=== PATIENT | female | born 1965 | race African-American/Black ===

== ENCOUNTER 2024-10-30 17:57 | Emergency (ER) | payer OTHER ==
[~2024-10-30] VITALS: Ht 175.3 cm; Wt 88.0 kg
[2024-10-30 18:07] VITALS: O2SAT 98
[2024-10-30] MEDS: KETOROLAC 30MG/ML VIAL IM ONE (19:09)
[2024-10-30] MEDS: METHOCARBAMOL 500MG TABLET PO ONE (19:09)
[2024-10-30] MEDS: LIDOCAINE 5% PATCH TOP SCH (19:09)
[2024-10-30] MEDS ORDERED: IBUP-2029 MT (20:33)
[2024-10-30] MEDS ORDERED: METH-653 MT (20:33)
[2024-10-30] MEDS ORDERED: LIDO700A30 TP (20:33)
[2024-10-30 21:20] VITALS: BP 148/91; PULSE 75; RESP 8; TEMP 36.7; O2SAT 100
== END 2024-10-30 21:24 | disposition home or self-care (01) ==
LOC: ER 17:57
DX: S33.5XXA Sprain of ligaments of lumbar spine, initial encounter (principal); E11.9 Type 2 diabetes mellitus without complications; E78.00 Pure hypercholesterolemia, unspecified; I10 Essential (primary) hypertension; Z86.73 Personal history of transient ischemic attack (TIA), and cerebral infarction without residual deficits; Z96.659 Presence of unspecified artificial knee joint; W18.39XA Other fall on same level, initial encounter; Y93.89 Activity, other specified; Y92.89 Other specified places as the place of occurrence of the external cause; Y99.8 Other external cause status
CPT/HCPCS: 99285; 72131; 96372; J1885